=== PATIENT | female | born 1995 | race Caucasian/White ===

== ENCOUNTER 2024-03-16 12:48 | Emergency (ER) | payer OTHER ==
[~2024-03-16] VITALS: Ht 165.1 cm; Wt 48.5 kg
[2024-03-16] MEDS ORDERED: CARB15DR12 (13:02)
[2024-03-16] MEDS ORDERED: CEPHALEXIN (13:02)
--- NOTE | 2024-03-16 13:05 | NUR ---
patient presents to ed with right sided throat pain, states she has history of peritonsilar abscess, unable to assess throat due to patient noted being able to flatten tongue, patientis alert and oriented x 4, noted walking in from home with steady gait
--- NOTE | 2024-03-16 13:12 | NUR ---
at bedside for MSE
[2024-03-16 13:38] LABS: BASOPHILS % (AUTO) 0.3 % (0.0-2.0); EOSINOPHILS % (AUTO) 0.2 % (0.0-7.0); HEMATOCRIT 38.9 % (31.2-41.9); LYMPHOCYTES # (AUTO) 1.7 K/uL (0.8-4.8); LYMPHOCYTES % (AUTO) 14.2 % (20.5-51.5); MEAN CORPUSCULAR HEMOGLOBIN 30.6 uug (24.7-32.8); MEAN CORPUSCULAR HGB CONC 33 g/dL (32.3-35.6); MONOCYTES # (AUTO) 0.9 K/uL (0.1-1.30); MONOCYTES % (AUTO) 7.7 % (0.0-11.0); NEUTROPHILS # (AUTO) 9.2 K/uL (1.8-8.9); NEUTROPHILS % (AUTO) 77.6 % (38.5-71.5); PLATELET COUNT (AUTO) 328 K/uL (179-408); RED BLOOD CELL COUNT(AUTO) 4.23 MIL/uL (3.63-4.92); RED CELL DISTRIBUTION WIDTH 13.6 % (12.3-17.7); WHITE BLOOD COUNT (AUTO) 11.9 K/uL (3.8-11.8)
[2024-03-16] MEDS ORDERED: DEXAMETHASONE SOD PHOSPHATE 10 MG INJ ONE (13:40)
[2024-03-16] MEDS ORDERED: CLINDAMYCIN 600 MG PIGGYBACK**ER OMNI IV ONE (13:41)
[2024-03-16] MEDS ORDERED: KETOROLAC TROMETHAMINE 15 MG INJ ONE (13:41)
[2024-03-16 13:46] LABS: DIFFERENTIAL COMMENT 1
[2024-03-16] MEDS: DEXAMETHASONE SOD PHOSPHATE 4 MG INJ IV ONE (13:49)
[2024-03-16] MEDS: CLINDAMYCIN PHOSPHATE IV 600 MG in IV DEXTROSE 5% 100 ML IV ONE (13:49)
[2024-03-16 13:50] LABS: CALCIUM 9.2 mg/dL (8.5-10.1); CREATININE 0.7 mg/dL (0.6-1.3); POTASSIUM 3.8 mmol/L (3.5-5.1)
[2024-03-16] MEDS: KETOROLAC TROMETHAMINE 15 MG INJ IVP ONE (13:50)
[2024-03-16 13:55] LABS: ALBUMIN 3.8 g/dL (3.4-5.0); BILIRUBIN,DIRECT 0.3 mg/dL (0.0-0.2); BILIRUBIN,TOTAL 1.1 mg/dL (0.2-1.0); TOTAL PROTEIN, SERUM 7.8 g/dL (6.4-8.2)
[2024-03-16] MEDS ORDERED: CEPH500C2 PO (14:54)
--- NOTE | 2024-03-16 15:03 | NUR ---
Patient discharged to home in stable condition. Iv removed, denies pain, alert and oriented x4. escorted home. Written and verbal after care instructions given. noted walking with steady gait. Patient verbalizes understanding of instructions. Stressed follow up or return to ER for worsening s/s.
[2024-03-16 15:08] VITALS: BP 123/82; TEMP 98.4; O2SAT 100
== END 2024-03-16 15:10 | disposition home or self-care (01) ==
LOC: ER 12:48
DX: J36 Peritonsillar abscess (principal); Z79.899 Other long term (current) drug therapy
CPT/HCPCS: 99284; 96365; 96375; 80076; 80048; 85025; 86403; 87070; 36415; J3490 ×2; J1100; J1885; A4606; A4663

== ENCOUNTER 2024-10-08 14:18 | Emergency (ER) | payer OTHER ==
[~2024-10-08] VITALS: Ht 165.1 cm; Wt 56.7 kg
[~2024-10-08 14:18] MED LIST: CARB15DR12; CEPH500C2 PO; CEPHALEXIN
[2024-10-08] MEDS ORDERED: HYDROCODONE/APAP 10-325 MG TABLET ONE (15:10)
[2024-10-08] MEDS: HYDROCODONE/APAP 10-325 MG TABLET PO ONE (15:14)
[2024-10-08] MEDS ORDERED: ACET1TAB23 PO (15:15)
[2024-10-08] MEDS ORDERED: OFLO5DRO5 RIGHT EAR (15:15)
[2024-10-08 15:55] VITALS: BP 131/77; TEMP 97.7; O2SAT 99
== END 2024-10-08 15:21 | disposition home or self-care (01) ==
LOC: ER 14:21
DX: H60.91 Unspecified otitis externa, right ear (principal)
CPT/HCPCS: A4606; A4663

== ENCOUNTER 2024-12-26 17:04 | Emergency (ER) | payer OTHER ==
[~2024-12-26] VITALS: Ht 165.1 cm; Wt 56.7 kg
[~2024-12-26 17:04] MED LIST changes: +ACET1TAB23 PO; +OFLO5DRO5 RIGHT EAR
[2024-12-26] MEDS ORDERED: DEXAMETHASONE SOD PHOSPHATE 10 MG INJ ONE (17:30)
[2024-12-26] MEDS ORDERED: AMOX-430 PO (17:30)
[2024-12-26] MEDS ORDERED: AMOXICILLIN-CLAVUL 875-125MG TABLET ONE (17:30)
[2024-12-26] MEDS ORDERED: IBUP-1955 PO (17:30)
[2024-12-26] MEDS: AMOXICILLIN-CLAVUL 875-125MG TABLET PO ONE (17:37)
[2024-12-26] MEDS: DEXAMETHASONE SOD PHOSPHATE 4 MG INJ IM ONE (17:37)
[2024-12-26 17:45] VITALS: BP 131/89; O2SAT 96
== END 2024-12-26 17:46 | disposition home or self-care (01) ==
LOC: ER 17:09
DX: J02.9 Acute pharyngitis, unspecified (principal)
CPT/HCPCS: 86403; 87070; A4606; A4663; J1100

== ENCOUNTER 2025-04-02 18:15 | Emergency (ER) | payer MEDICAID, OTHER ==
[~2025-04-02] VITALS: Ht 165.1 cm; Wt 56.7 kg
[~2025-04-02 18:15] MED LIST changes: +AMOX-430 PO; +IBUP-1955 PO
[2025-04-02 18:23] VITALS: BP 116/70
[2025-04-02] MEDS ORDERED: NAPR-1069 PO (19:02)
[2025-04-02] MEDS ORDERED: ACET-3102 PO (19:02)
[2025-04-02 19:09] VITALS: BP 116/70; O2SAT 99
== END 2025-04-02 19:10 | disposition home or self-care (01) ==
LOC: ER 18:18
DX: M25.562 Pain in left knee (principal); W18.39XA Other fall on same level, initial encounter; Y93.89 Activity, other specified; Y92.89 Other specified places as the place of occurrence of the external cause; Y99.8 Other external cause status
CPT/HCPCS: A4606; A4663